=== PATIENT | male | born 1995 | race Two or more races ===

== ENCOUNTER 2023-09-11 17:53 | Emergency (ER) | payer OTHER ==
[~2023-09-11] VITALS: Ht 177.8 cm; Wt 84.0 kg
[2023-09-11 18:45] VITALS: BP 132/80; PULSE 88; RESP 18; TEMP 98.1
[2023-09-11] MEDS: PERTUSS(ACELL),DIPH,TET/PF 0.5 ML SYRINGE [ADULT] IM. ONE (19:38)
[2023-09-11] MEDS: HYDROmorphone HCL 2 MG/ML SYRINGE IM ONE (19:39)
[2023-09-11] MEDS: LIDOCAINE/PF 1% 2 ML VIAL IM ONE (19:40)
[2023-09-11] MEDS: ONDANSETRON HCL 4 MG/2 ML VIAL IM ONE (19:40)
[2023-09-11] MEDS: DOXYCYCLINE HYCLATE 100 MG TABLET PO ONE (19:40)
[2023-09-11] MEDS: LIDOCAINE 1% 10 ML VIAL SQ ONE (19:41)
[2023-09-11] MEDS: CefTRIAXone SODIUM 1 GM/VIAL IM ONE (19:41)
== END 2023-09-11 21:09 | disposition home or self-care (01) ==
LOC: EMS 17:59
DX: L02.413 Cutaneous abscess of right upper limb (principal); F32.A Depression, unspecified; K76.9 Liver disease, unspecified; F11.90 Opioid use, unspecified, uncomplicated
CPT/HCPCS: 99284; 10060; 90715; 90471; 96372; J0696; J1170; J3490 ×2; J2405